=== PATIENT | female | born 2000 | race Asian ===

== ENCOUNTER 2023-09-29 06:53 | Outpatient (REF) | payer OTHER, SELFPAY ==
--- NOTE | ~2023-09-29 | US_ITS ---
EXAMINATION: US PELVIS CLINICAL INFORMATION: Menorrhagia, last menstrual period 2-1/2 weeks ago. COMPARISON: None available. TECHNIQUE: Ultrasound of the pelvis is performed using both transabdominal and transvaginal transducers along with Doppler. Transvaginal imaging is performed due to inadequate visualization transabdominally. FINDINGS: The uterus is anteverted and measures 7.5 x 4.0 x 5.6 cm. Uterine configuration raises the possibility of a congenital anomaly such as an arcuate uterus. Endometrium is echogenic with double-wall thickness of 9 mm. Small amount of free fluid in the right adnexa. Right ovary measures 2.5 x 2.7 x 3.2 cm, volume 11.3 mL. Right ovarian 2.0 x 1.2 x 2.0 cm cyst is hypoechoic with diffuse internal echoes and peripheral vascularity, possibly a resolving corpus luteum. Recommend follow-up ultrasound in 6-8 weeks. Left ovary measures 2.1 x 1.5 x 1.8 cm, volume 2.9 mL and was seen only on limited transabdominal ultrasound images. Limited visualization due to bowel gas. US/US pelvic and transvaginal IMPRESSION: Right ovarian 2.0 cm hypoechoic lesion may represent a resolving corpus luteum. Recommend follow-up ultrasound in 6-8 weeks.
== END 2023-09-29 06:54 | disposition home or self-care (01) ==
LOC: HO.UMASIMG 06:53
PROVIDERS: Visit Provider Family Medicine
DX: R10.2 Pelvic and perineal pain (principal); N92.0 Excessive and frequent menstruation with regular cycle; D64.9 Anemia, unspecified
CPT/HCPCS: 76830; 76856